=== PATIENT | male | born 2000 | race Caucasian/White ===

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

== ENCOUNTER 2022-03-03 15:31 | Emergency (ER) | payer MEDICAID, OTHER | END 2022-03-03 19:37 | disposition home or self-care (01) | LOC: JD.ED 15:31 | DX: F32.A Depression, unspecified (principal); R45.851 Suicidal ideations | CPT/HCPCS: 36415; 80053; 80143; 80179; 80307; 84443; 85025; 99282; 99284 ==